=== PATIENT | female | born 2000 | race Caucasian/White ===

== ENCOUNTER 2022-05-17 01:04 | Observation (INO) ==
[2022-05-17 01:29] LABS: Basophils # (auto) 0.01 K/uL (0-0.2); Basophils % (auto) 0.1 %; Eosinophils # (auto) 0.13 K/uL (0-0.50); Eosinophils % (auto) 1.7 %; Hematocrit (blood only) 39.3 % (34.1-44.9); Immature Granulocytes # (auto) 0.02 K/uL (0.00-0.02); Immature Granulocytes % (auto) 0.3 %; Lymphocytes # (auto) 1.95 K/uL (1.2-3.4); Lymphocytes % (auto) 25.8 %; Mean Corpuscular Hemoglobin 30.4 pg (25.0-34.0); Mean Corpuscular Hgb Conc 33.1 g/dL (32.0-36.0); Mean Platelet Volume 9.8 fL (9.4-12.3); Monocytes # (auto) 0.51 K/uL (0.24-0.82); Monocytes % (auto) 6.7 %; Neutrophils # (auto) 4.94 K/uL (1.4-6.5); Neutrophils % (auto) 65.4 %; Platelet Count 300 K/uL (130-400); RDW Coefficient of Variation 12.6 % (11.5-14.5); RDW Standard Deviation 42.4 fL (36.4-46.3); Red Blood Count 4.27 M/uL (3.93-5.22); White Blood Count 7.56 K/ul (4.8-10.8)
[2022-05-17 01:56] LABS: Albumin Globulin Ratio 2.2 (0.9-2); Albumin Level 4.8 gm/dl (3.4-5.0); BUN Creatinine Ratio 8.9 (10-20); Bilirubin,Total 0.3 mg/dl (0.2-1.0); Calcium 9.9 mg/dl (8.5-10.1); Creatinine Clr Calc Pharmacy 98.7 ml/min; Est GFR (African American) 107.4 ml/min; Est GFR (Non-African American) 92.7 ml/min; Globulin 2.2 gm/dl (2.5-4.0); Potassium 3.6 mmol/L (3.5-5.1)
[2022-05-17 01:58] LABS: Acetaminophen < 3 ug/ml (10-30); Salicylate < 3.0 mg/dl (3.0-30)
[2022-05-17 02:09] LABS: Thyroid Stimulating Hormone 13.659 uIu/ml (0.300-4.500)
[2022-05-17 02:47] LABS: T4 Free Thyroxine 1.04 ng/dl (0.61-1.60)
--- NOTE | 2022-05-17 05:58 | History & Physical Report ---
Date of Service May 17, 2022 Assessment & Plan (1) Benzodiazepine (tranquilizer) overdose: Plan: patient is sedated and unable to communicate, severely limiting HPI and ROS reportedly took around 25 xanax pills Admit to medical telemetry consult Psychiatry. Hold all meds: alprazolam, aripiprazole, cariprazine, lamotrigine, and trazodone until assessed by Psychiatry NPO NSS + KCL 20 MEQ @ 150 mls/hr (2) Antidepressant overdose: Plan: also reportedly took and unknown numberr of duloxetine pills (3) Hypothyroidism (acquired): Plan: TSH 13.659 on admission labs add a free T4 and free T3 level no known history of hypothyroidism (4) Tobacco use disorder: Plan: Previously seen in the ED on 10/16/21 fo chest pain, and noted to be a regular tobacco user, e-cigarettes and vaping. History of Present Illness Chief Complaint: The patient is referred for admission due to intentional overdose of 25 xanax pills and and unknown quantity of duloxetine. She is unarousable, and and thus cannot contribute to her HPI or ROS. Primary Care Provider: [facility] see above Allergies Allergy/AdvReac Type Severity Reaction Status Date / Time No Known Allergies Allergy Verified 10/16/21 17:12 Home Medications Medication Instructions Recorded Confirmed Type aripiprazole 10 mg tablet 10 mg PO DAILY 10/16/21 05/17/22 History lamotrigine 100 mg tablet 200 mg PO DAILY 10/16/21 05/17/22 History medroxyprogesterone 150 mg/mL 150 mg IM .[id number] 10/16/21 05/17/22 History intramuscular syringe trazodone 100 mg tablet 100 - 200 mg PO HS PRN Sleep 10/16/21 10/16/21 History alprazolam 0.25 mg tablet 0.25 mg PO TID PRN Anxiety 05/17/22 05/17/22 History cariprazine 1.5 mg capsule 1.5 mg PO DAILY 05/17/22 05/17/22 History (Allyssar) Past Med/Surg History Social History Smoking Status: Current every day smoker Tobacco Type: E-cigarettes / Vaping Feels Safe at Home: Yes Review of Systems Review of Systems: Unobtainable due to reduced consciousness Results & Data Results & Data ([facility]) Vital Signs (Past 12 Hours) Vital Signs Pulse Pulse Resp BP BP Pulse Ox O2 Del Method 05/17/22 04:45 80 14 102/67 100 Room Air 05/17/22 04:30 81 13 108/60 99 Room Air 05/17/22 04:15 78 13 106/54 L 100 Room Air 05/17/22 04:00 80 19 114/63 96 Room Air 05/17/22 03:46 74 16 121/83 96 Room Air 05/17/22 03:30 71 14 107/60 98 Room Air 05/17/22 03:15 74 15 112/79 99 Room Air 05/17/22 03:00 63 13 111/78 100 Room Air 05/17/22 02:45 65 14 118/73 100 Room Air 05/17/22 02:30 65 15 111/68 100 Room Air 05/17/22 02:15 65 14 108/75 100 Room Air 05/17/22 02:10 68 14 98 05/17/22 02:00 72 14 05/17/22 02:00 108/68 05/17/22 01:50 74 16 97 05/17/22 01:45 73 17 99 05/17/22 01:45 121/74 05/17/22 01:40 72 16 98 05/17/22 01:30 71 16 05/17/22 01:30 100/75 05/17/22 01:20 73 16 98 05/17/22 01:15 109/90 05/17/22 01:15 73 16 05/17/22 01:13 67 22 05/17/22 01:13 111/81 05/17/22 00:59 66 15 100/75 100 Room Air 05/17/22 01:14 98 H 16 109/90 98 Room Air 05/17/22 01:14 98 Room Air Laboratory Results Laboratory Results WBC 7.56 K/ul (4.8-10.8) 05/17/22 01:12 RBC 4.27 M/uL (3.93-5.22) 05/17/22 01:12 Hgb 13.0 g/dl (12.0-16.0) 05/17/22 01:12 Hct 39.3 % (34.1-44.9) 05/17/22 01:12 MCV 92.0 fL (80.0-100.0) 05/17/22 01:12 MCH 30.4 pg (25.0-34.0) 05/17/22 01:12 MCHC 33.1 g/dL (32.0-36.0) 05/17/22 01:12 RDW Std Deviation 42.4 fL (36.4-46.3) 05/17/22 01:12 RDW Coeff of Love 12.6 % (11.5-14.5) 05/17/22 01:12 Plt Count 300 K/uL (130-400) 05/17/22 01:12 MPV 9.8 fL (9.4-12.3) 05/17/22 01:12 Immature Gran % (Auto) 0.3 % 05/17/22 01:12 Neut % (Auto) 65.4 % 05/17/22 01:12 Lymph % (Auto) 25.8 % 05/17/22 01:12 Starke % (Auto) 6.7 % 05/17/22 01:12 Eos % (Auto) 1.7 % 05/17/22 01:12 Baso % (Auto) 0.1 % 05/17/22 01:12 Neut # (Auto) 4.94 K/uL (1.4-6.5) 05/17/22 01:12 Lymph # (Auto) 1.95 K/uL (1.2-3.4) 05/17/22 01:12 Starke # (Auto) 0.51 K/uL (0.24-0.82) 05/17/22 01:12 Eos # (Auto) 0.13 K/uL (0-0.50) 05/17/22 01:12 Baso # (Auto) 0.01 K/uL (0-0.2) 05/17/22 01:12 Immature Gran # (Auto) 0.02 K/uL (0.00-0.02) 05/17/22 01:12 Sodium 138 mmol/L (136-145) 05/17/22 01:12 Potassium 3.6 mmol/L (3.5-5.1) 05/17/22 01:12 Chloride 105 mmol/L (98-107) 05/17/22 01:12 Carbon Dioxide 26 mmol/L (21-32) 05/17/22 01:12 Anion Gap 7 (3-11) 05/17/22 01:12 BUN 8 mg/dl (6-23) 05/17/22 01:12 Creatinine 0.90 mg/dl (0.6-1.2) 05/17/22 01:12 Est Cr Clr Drug Dosing 98.7 ml/min 05/17/22 01:12 Est GFR ( Amer) 107.4 ml/min 05/17/22 01:12 Est GFR (Non-Af Amer) 92.7 ml/min 05/17/22 01:12 BUN/Creatinine Ratio 8.9 (10-20) L 05/17/22 01:12 Glucose 93 mg/dl (70-99(Fasting)) 05/17/22 01:12 Calcium 9.9 mg/dl (8.5-10.1) 05/17/22 01:12 Total Bilirubin 0.3 mg/dl (0.2-1.0) 05/17/22 01:12 AST 18 U/L (13-39) 05/17/22 01:12 ALT 14 U/L (7-52) 05/17/22 01:12 Alkaline Phosphatase 68 U/L (34-104) 05/17/22 01:12 Total Protein 7.0 gm/dl (6.0-8.3) 05/17/22 01:12 Albumin 4.8 gm/dl (3.4-5.0) 05/17/22 01:12 Globulin 2.2 gm/dl (2.5-4.0) L 05/17/22 01:12 Albumin/Globulin Ratio 2.2 (0.9-2) H 05/17/22 01:12 TSH 13.659 uIu/ml (0.300-4.500) H 05/17/22 01:12 Free T4 1.04 ng/dl (0.61-1.60) 05/17/22 01:12 Salicylates < 3.0 mg/dl (3.0-30) L 05/17/22 01:12 Acetaminophen < 3 ug/ml (10-30) L 05/17/22 01:12 Ethyl Alcohol mg/dL < 10.0 mg/dl (<10.0) 05/17/22 01:12 SARS-CoV-2, RNA, NAAT NEGATIVE (NEGATIVE) 05/17/22 01:24 Code Status & VTE Plan Code Status full code VTE Prophylaxis Plan VTE Prophylaxis will be ordered: Yes PG Care Time/CCT Total # of Minutes Spent Total Time Spent with Patient: Total time spent is greater than 50% in coordination of care (as documented) at patient's floor/unit and/or counseling patient: Coding Level of Care Code INT OBSERVATION CARE 70M LVL 3 Diagnoses Benzodiazepine (tranquilizer) overdose T42.4X1A Antidepressant overdose T43.201A Hypothyroidism (acquired) E03.9 Tobacco use disorder F17.200
[2022-05-17] MEDS ORDERED: ONDANSETRON INJ 2 MG/ML 2 ML VIAL IV PRN (06:08)
[2022-05-17] MEDS: NSS + 20MEQ KCL 20 MEQ/1,000 ML BAG IV SCH ×3 (06:40→20:14)
[2022-05-17] MEDS: SODIUM CHLORIDE 0.9% 1000ML 1,000 ML IV SCH ×2 (06:42→06:51)
--- NOTE | 2022-05-17 08:29 | Emergency Department Note ---
Impression & Plan [facility] NAME: LISE WHITTAKER AGE: 21 SEX: F ARRIVES VIA: Ambulance INFORMANT: Police ED PROVIDER(S): Cesilia Munoz DO CHIEF COMPLAINT: Intentional overdose PLAN: Disposition: Admit to the [facility] Condition: Guarded MEDICAL DECISION MAKING: This is a 21-year-old female patient who took an intentional overdose of Xanax and Cymbalta. The patient was brought to the emergency department by EMS and remained in an unresponsive state while here in the emergency department. Her vital signs remained stable. Police petitioned a 302. However, the patient will require medical admission as she could not be medically cleared because of her mental status secondary to the benzodiazepine overdose. Poison control contacted and they suggested supportive care. Triage Nursing notes reviewed and agree with them Additional history obtained from the police who responded to her home Vital Signs: reviewed and unremarkable Differential diagnosis: Drug overdose, intentional overdose, suicide attempt, mood disorder, thought disorder ER treatment provided: IV normal saline Diagnostics interpreted by me: ECG: Normal sinus rhythm at a rate of [address] segment elevation or signs of ischemia. There is no ectopy. Cardiac Monitoring: Normal sinus rhythm at 70 Laboratory studies: See below Consultation(s): Poison Control Center HPI: / arrives for evaluation of overdose. The police explained that they received a phone call from boyfriend who was concerned that the patient took an overdose of Xanax and Cymbalta and attempt to hurt her self. He arrived on scene and found the patient semiresponsive. When police arrived on scene, they found the patient unresponsive. ROS: Unobtainable from patient as she is unresponsive PAST MEDICAL HISTORY:Depression PAST SURGICAL HISTORY:Unobtainable from patient as she is unresponsive FAMILY HISTORY:Unobtainable from patient as she is unresponsive SOCIAL HISTORY:Unobtainable from patient as she is unresponsive HOME MEDICATIONS:See list ALLERGIES:None VITALS:See Below PHYSICAL EXAMINATION: HEENT: Head - normocephalic and atraumatic Pupils are equal, round, and reactive to light. Extraocular eye muscles are intact, and sclera are anicteric. Nose - moist nasal mucosa without discharge. Mouth - moist buccal mucosa. Oropharynx is nonerythematous and there is no tonsillar exudate or edema noted. Neck: Supple; no JVD, nuchal rigidity, cervical lymphadenopathy, or thyromegaly. Heart: Regular rate and rhythm. There is a normal S1 and S2 with no murmurs, clicks, or gallops appreciated. Lungs: Clear to auscultation bilaterally with no wheezes, rales, or rhonchi. Abdomen: Soft, completely nontender, nondistended, with good bowel sounds. There are no palpable pulsatile masses or hepatosplenomegaly. There is no guarding, rigidity, or rebound noted. Extremities: No evidence of cyanosis, clubbing, or edema. There are easily palpable peripheral pulses. Skin: warm and dry with good turgor and no rashes. ED COURSE: Times/Reassessments: 130: The patient was evaluated in room A8. A complete history and physical was performed. An IV lock was initiated and labs were dr jb as above. An order was placed for continuous cardiac monitoring. The patient was in a normal sinus rhythm at a rate of 70. The patient was started on IV normal saline. Poison control was contacted. A twelve-lead EKG was obtained. This is described above. The patient remained unresponsive with stable vital signs. She was monitored closely. Patient will be admitted medically Cesilia Munoz DO Past Med/Surg History Social History Smoking Status: Never smoker Tobacco Type: E-cigarettes / Vaping Hx Substance Use: Yes Last Used Substance: Just Prior to Arrival Preferred Language: Finnish Communication Ability: Effective Junior Business Analyst Required: No Beliefs That Will Affect Care: None Current Living Situation: Parent Feels Safe at Home: Yes Assistive Devices: None Allergies Allergies Allergy/AdvReac Type Severity Reaction Status Date / Time No Known Allergies Allergy Verified 10/16/21 17:12 Home Meds Home Medications Medication Instructions Recorded Confirmed aripiprazole 10 mg tablet 10 mg PO DAILY 10/16/21 05/17/22 lamotrigine 100 mg tablet 200 mg PO DAILY 10/16/21 05/17/22 medroxyprogesterone 150 mg/mL 150 mg IM .[id number] 10/16/21 05/17/22 intramuscular syringe trazodone 100 mg tablet 100 - 200 mg PO HS PRN Sleep 10/16/21 10/16/21 alprazolam 0.25 mg tablet 0.25 mg PO TID PRN Anxiety 05/17/22 05/17/22 cariprazine 1.5 mg capsule 1.5 mg PO DAILY 05/17/22 05/17/22 (Angie) Results & Data (ED) Vital Signs Vital Signs - 24 hr 05/17/22 01:14 05/17/22 01:14 05/17/22 00:59 Pulse Rate 66 Pulse Rate [Left Brachial] 98 H Pulse Rate from SpO2 Sensor Respiratory Rate 16 15 Respiratory Effort / Characteristics Non-Labored Spontaneous Non-Labored Spontaneous Respiratory Depth Normal Normal Respiratory Pattern Regular Regular Blood Pressure 100/75 Blood Pressure [Left Arm] 109/90 Blood Pressure Mean 83 Blood Pressure Mean [Left Arm] 96 Blood Pressure Position Lying Pulse Oximetry 98 98 100 Oxygen Delivery Method Room Air Room Air Room Air Sepsis New/Unexplained Change in Mental Status No Sepsis Action Taken by Nursing No Action Required 05/17/22 01:14 05/17/22 01:13 05/17/22 01:13 Pulse Rate 67 Pulse Rate [Left Brachial] Pulse Rate from SpO2 Sensor Respiratory Rate 22 Respiratory Effort / Characteristics Non-Labored Spontaneous Respiratory Depth Normal Respiratory Pattern Blood Pressure 111/81 Blood Pressure [Left Arm] Blood Pressure Mean 91 Blood Pressure Mean [Left Arm] Blood Pressure Position Pulse Oximetry Oxygen Delivery Method Sepsis New/Unexplained Change in Mental Status Sepsis Action Taken by Nursing 05/17/22 01:15 05/17/22 01:15 05/17/22 01:20 Pulse Rate 73 73 Pulse Rate [Left Brachial] Pulse Rate from SpO2 Sensor 74 Respiratory Rate 16 16 Respiratory Effort / Characteristics Respiratory Depth Respiratory Pattern Blood Pressure 109/90 Blood Pressure [Left Arm] Blood Pressure Mean 96 Blood Pressure Mean [Left Arm] Blood Pressure Position Pulse Oximetry 98 Oxygen Delivery Method Sepsis New/Unexplained Change in Mental Status Sepsis Action Taken by Nursing 05/17/22 01:30 05/17/22 01:30 05/17/22 01:40 Pulse Rate 71 72 Pulse Rate [Left Brachial] Pulse Rate from SpO2 Sensor 72 Respiratory Rate 16 16 Respiratory Effort / Characteristics Respiratory Depth Respiratory Pattern Blood Pressure 100/75 Blood Pressure [Left Arm] Blood Pressure Mean 83 Blood Pressure Mean [Left Arm] Blood Pressure Position Pulse Oximetry 98 Oxygen Delivery Method Sepsis New/Unexplained Change in Mental Status Sepsis Action Taken by Nursing 05/17/22 01:45 05/17/22 01:45 05/17/22 01:50 Pulse Rate 73 74 Pulse Rate [Left Brachial] Pulse Rate from SpO2 Sensor 74 74 Respiratory Rate 17 16 Respiratory Effort / Characteristics Respiratory Depth Respiratory Pattern Blood Pressure 121/74 Blood Pressure [Left Arm] Blood Pressure Mean 89 Blood Pressure Mean [Left Arm] Blood Pressure Position Pulse Oximetry 99 97 Oxygen Delivery Method Sepsis New/Unexplained Change in Mental Status Sepsis Action Taken by Nursing 05/17/22 02:00 05/17/22 02:00 05/17/22 02:10 Pulse Rate 72 68 Pulse Rate [Left Brachial] Pulse Rate from SpO2 Sensor 68 Respiratory Rate 14 14 Respiratory Effort / Characteristics Respiratory Depth Respiratory Pattern Blood Pressure 108/68 Blood Pressure [Left Arm] Blood Pressure Mean 81 Blood Pressure Mean [Left Arm] Blood Pressure Position Pulse Oximetry 98 Oxygen Delivery Method Sepsis New/Unexplained Change in Mental Status Sepsis Action Taken by Nursing 05/17/22 02:15 05/17/22 02:30 05/17/22 02:45 Pulse Rate 65 65 65 Pulse Rate [Left Brachial] Pulse Rate from SpO2 Sensor Respiratory Rate 14 15 14 Respiratory Effort / Characteristics Respiratory Depth Respiratory Pattern Blood Pressure 108/75 111/68 118/73 Blood Pressure [Left Arm] Blood Pressure Mean 86 82 88 Blood Pressure Mean [Left Arm] Blood Pressure Position Pulse Oximetry 100 100 100 Oxygen Delivery Method Room Air Room Air Room Air Sepsis New/Unexplained Change in Mental Status Sepsis Action Taken by Nursing 05/17/22 03:00 05/17/22 03:15 05/17/22 03:30 Pulse Rate 63 74 71 Pulse Rate [Left Brachial] Pulse Rate from SpO2 Sensor Respiratory Rate 13 15 14 Respiratory Effort / Characteristics Respiratory Depth Respiratory Pattern Blood Pressure 111/78 112/79 107/60 Blood Pressure [Left Arm] Blood Pressure Mean 89 90 75 Blood Pressure Mean [Left Arm] Blood Pressure Position Pulse Oximetry 100 99 98 Oxygen Delivery Method Room Air Room Air Room Air Sepsis New/Unexplained Change in Mental Status Sepsis Action Taken by Nursing 05/17/22 03:46 05/17/22 04:00 05/17/22 04:15 Pulse Rate 74 80 78 Pulse Rate [Left Brachial] Pulse Rate from SpO2 Sensor Respiratory Rate 16 19 13 Respiratory Effort / Characteristics Respiratory Depth Respiratory Pattern Blood Pressure 121/83 114/63 106/54 L Blood Pressure [Left Arm] Blood Pressure Mean 95 80 71 Blood Pressure Mean [Left Arm] Blood Pressure Position Pulse Oximetry 96 96 100 Oxygen Delivery Method Room Air Room Air Room Air Sepsis New/Unexplained Change in Mental Status Sepsis Action Taken by Nursing 05/17/22 04:30 05/17/22 04:45 05/17/22 05:00 Pulse Rate 81 80 80 Pulse Rate [Left Brachial] Pulse Rate from SpO2 Sensor Respiratory Rate 13 14 13 Respiratory Effort / Characteristics Respiratory Depth Respiratory Pattern Blood Pressure 108/60 102/67 100/60 Blood Pressure [Left Arm] Blood Pressure Mean 76 78 73 Blood Pressure Mean [Left Arm] Blood Pressure Position Pulse Oximetry 99 100 100 Oxygen Delivery Method Room Air Room Air Room Air Sepsis New/Unexplained Change in Mental Status Sepsis Action Taken by Nursing 05/17/22 05:15 05/17/22 05:30 Pulse Rate 83 79 Pulse Rate [Left Brachial] Pulse Rate from SpO2 Sensor Respiratory Rate 13 16 Respiratory Effort / Characteristics Respiratory Depth Respiratory Pattern Blood Pressure 116/65 102/78 Blood Pressure [Left Arm] Blood Pressure Mean 82 86 Blood Pressure Mean [Left Arm] Blood Pressure Position Pulse Oximetry 99 100 Oxygen Delivery Method Room Air Room Air Sepsis New/Unexplained Change in Mental Status Sepsis Action Taken by Nursing Laboratory Data Result diagrams: 05/17/22 01:12 05/17/22 01:12 Lab Results 05/17/22 05/17/22 05/17/22 Range/Units 01:12 01:12 01:12 WBC 7.56 (4.8-10.8) K/ul RBC 4.27 (3.93-5.22) M/uL Hgb 13.0 (12.0-16.0) g/dl Hct 39.3 (34.1-44.9) % MCV 92.0 (80.0-100.0) fL MCH 30.4 (25.0-34.0) pg MCHC 33.1 (32.0-36.0) g/dL RDW Std Deviation 42.4 (36.4-46.3) fL RDW Coeff of Love 12.6 (11.5-14.5) % Plt Count 300 (130-400) K/uL MPV 9.8 (9.4-12.3) fL Immature Gran % (Auto) 0.3 % Neut % (Auto) 65.4 % Lymph % (Auto) 25.8 % Berg[place] % (Auto) 6.7 % Eos % (Auto) 1.7 % Baso % (Auto) 0.1 % Neut # (Auto) 4.94 (1.4-6.5) K/uL Lymph # (Auto) 1.95 (1.2-3.4) K/uL [place] # (Auto) 0.51 (0.24-0.82) K/uL Eos # (Auto) 0.13 (0-0.50) K/uL Baso # (Auto) 0.01 (0-0.2) K/uL Immature Gran # (Auto) 0.02 (0.00-0.02) K/uL Sodium 138 (136-145) mmol/L Potassium 3.6 (3.5-5.1) mmol/L Chloride 105 (98-107) mmol/L Carbon Dioxide 26 (21-32) mmol/L Anion Gap 7 (3-11) BUN 8 (6-23) mg/dl Creatinine 0.90 (0.6-1.2) mg/dl Est Cr Clr Drug Dosing 98.7 ml/min Est GFR ( Amer) 107.4 ml/min Est GFR (Non-Af Amer) 92.7 ml/min BUN/Creatinine Ratio 8.9 L (10-20) Glucose 93 (70-99(Fasting)) mg/dl Calcium 9.9 (8.5-10.1) mg/dl Total Bilirubin 0.3 (0.2-1.0) mg/dl AST 18 (13-39) U/L ALT 14 (7-52) U/L Alkaline Phosphatase 68 (34-104) U/L Total Protein 7.0 (6.0-8.3) gm/dl Albumin 4.8 (3.4-5.0) gm/dl Globulin 2.2 L (2.5-4.0) gm/dl Albumin/Globulin Ratio 2.2 H (0.9-2) TSH 13.659 H (0.300-4.500) uIu/ml Free T4 1.04 (0.61-1.60) ng/dl Free T3 (2.3-4.2) pg/ml Salicylates (3.0-30) mg/dl Acetaminophen (10-30) ug/ml Ethyl Alcohol mg/dL (<10.0) mg/dl SARS-CoV-2, RNA, NAAT (NEGATIVE) 05/17/22 05/17/22 05/17/22 Range/Units 01:12 01:12 01:12 WBC (4.8-10.8) K/ul RBC (3.93-5.22) M/uL Hgb (12.0-16.0) g/dl Hct (34.1-44.9) % MCV (80.0-100.0) fL MCH (25.0-34.0) pg MCHC (32.0-36.0) g/dL RDW Std Deviation (36.4-46.3) fL RDW Coeff of Love (11.5-14.5) % Plt Count (130-400) K/uL MPV (9.4-12.3) fL Immature Gran % (Auto) % Neut % (Auto) % Lymph % (Auto) % Berg[place] % (Auto) % Eos % (Auto) % Baso % (Auto) % Neut # (Auto) (1.4-6.5) K/uL Lymph # (Auto) (1.2-3.4) K/uL Bergen # (Auto) (0.24-0.82) K/uL Eos # (Auto) (0-0.50) K/uL Baso # (Auto) (0-0.2) K/uL Immature Gran # (Auto) (0.00-0.02) K/uL Sodium (136-145) mmol/L Potassium (3.5-5.1) mmol/L Chloride (98-107) mmol/L Carbon Dioxide (21-32) mmol/L Anion Gap (3-11) BUN (6-23) mg/dl Creatinine (0.6-1.2) mg/dl Est Cr Clr Drug Dosing ml/min Est GFR ( Amer) ml/min Est GFR (Non-Af Amer) ml/min BUN/Creatinine Ratio (10-20) Glucose (70-99(Fasting)) mg/dl Calcium (8.5-10.1) mg/dl Total Bilirubin (0.2-1.0) mg/dl AST (13-39) U/L ALT (7-52) U/L Alkaline Phosphatase (34-104) U/L Total Protein (6.0-8.3) gm/dl Albumin (3.4-5.0) gm/dl Globulin (2.5-4.0) gm/dl Albumin/Globulin Ratio (0.9-2) TSH (0.300-4.500) uIu/ml Free T4 (0.61-1.60) ng/dl Free T3 3.86 (2.3-4.2) pg/ml Salicylates < 3.0 L (3.0-30) mg/dl Acetaminophen < 3 L (10-30) ug/ml Ethyl Alcohol mg/dL < 10.0 (<10.0) mg/dl SARS-CoV-2, RNA, NAAT (NEGATIVE) 05/17/22 Range/Units 01:24 WBC (4.8-10.8) K/ul RBC (3.93-5.22) M/uL Hgb (12.0-16.0) g/dl Hct (34.1-44.9) % MCV (80.0-100.0) fL MCH (25.0-34.0) pg MCHC (32.0-36.0) g/dL RDW Std Deviation (36.4-46.3) fL RDW Coeff of Love (11.5-14.5) % Plt Count (130-400) K/uL MPV (9.4-12.3) fL Immature Gran % (Auto) % Neut % (Auto) % Lymph % (Auto) % [place] % (Auto) % Eos % (Auto) % Baso % (Auto) % Neut # (Auto) (1.4-6.5) K/uL Lymph # (Auto) (1.2-3.4) K/uL Berg[place] # (Auto) (0.24-0.82) K/uL Eos # (Auto) (0-0.50) K/uL Baso # (Auto) (0-0.2) K/uL Immature Gran # (Auto) (0.00-0.02) K/uL Sodium (136-145) mmol/L Potassium (3.5-5.1) mmol/L Chloride (98-107) mmol/L Carbon Dioxide (21-32) mmol/L Anion Gap (3-11) BUN (6-23) mg/dl Creatinine (0.6-1.2) mg/dl Est Cr Clr Drug Dosing ml/min Est GFR ( Amer) ml/min Est GFR (Non-Af Amer) ml/min BUN/Creatinine Ratio (10-20) Glucose (70-99(Fasting)) mg/dl Calcium (8.5-10.1) mg/dl Total Bilirubin (0.2-1.0) mg/dl AST (13-39) U/L ALT (7-52) U/L Alkaline Phosphatase (34-104) U/L Total Protein (6.0-8.3) gm/dl Albumin (3.4-5.0) gm/dl Globulin (2.5-4.0) gm/dl Albumin/Globulin Ratio (0.9-2) TSH (0.300-4.500) uIu/ml Free T4 (0.61-1.60) ng/dl Free T3 (2.3-4.2) pg/ml Salicylates (3.0-30) mg/dl Acetaminophen (10-30) ug/ml Ethyl Alcohol mg/dL (<10.0) mg/dl SARS-CoV-2, RNA, NAAT NEGATIVE (NEGATIVE) Administered Medications Potassium Chloride/Sodium Chloride (Normal Saline W/20 Meq Kcl) 20 meq in 1,000 mls @ 150 mls/hr IV .[id number] KIMI Stop: 06/16/22 06:29 Last Admin: 05/17/22 13:19 Dose: 150 mls/hr Documented By: Infusion: 05/17/22 13:19 Dose: 150 mls/hr Documented By: Admin: 05/17/22 06:40 Dose: 150 mls/hr Documented By: TIM Discontinued Medications Sodium Chloride (Nss 1000ml) 1,000 mls @ 125 mls/hr IV .Q8H KIMI Stop: 06/16/22 04:44 Last Admin: 05/17/22 06:51 Dose: Not Given Documented By: TIM Discharge Plan Visit Data Chief Complaint: Mental Health Evaluation Stated Complaint: Overdose ED Provider: Cesilia Munoz Discharge Problem: Intentional benzodiazepine overdose Patient Disposition: Admitted As Inpatient Discharge Instructions Interventions: ED Discharge Assessment Last Done: 05/17/22 06:09 : Intentional benzodiazepine overdose Qualifiers: Encounter type: initial encounter Qualified Code(s): T42.4X2A - Poisoning by benzodiazepines, intentional self-harm, initial encounter
--- NOTE | 2022-05-17 14:24 | History & Physical Bridge Note ---
Date of Service May 17, 2022 History & Physical Bridge Note I have examined the patient, reviewed the History & Physical and in the interval since the performance of the History & Physical I have noted the following changes of clinical significance: no changes noted 21 yo WF with a prior h/o suicidal ideations/attempts/self-inflicted wounds who presented after a reported OD on Xanax and Cymbalta. Per mother she has been following with a psychiatrist in [place], [place] but doing telehealth visits. Mother admits that she has been experiencing depressed mood and "dark thoughts" over the past 2 weeks but worse over the past 4 days. Had an emergency telehealth visit with her psychiatrist on Friday. She was supposed to travel home this weekend and remain there for at least a week in order to get herself back on track. Patient is extremely somnolent but responds to sternal rub and opens eyes. Pupils dilated but reactive. Continues to protect her airway. Noted to have several lacerations to her upper right thigh. Heart is regular, lungs clear, belly soft w/ NA BS throughout. UDS, UA, and UCG not yet collected, will have nursing cath for urine to run these. Continue NPO status and IVF. Supportive care. 1:1 and suicide precautions. Psychiatry consulted, appreciate assistance. Agree with remainder of plan as outlined by admitting physician. Please see full history and physical for further details. Dr. Euceda updated on plan.
--- NOTE | 2022-05-17 14:29 | Communication Note ---
Date of Service: May 17, 2022 consult received, chart reviewed, case discussed with liaison nurse who spoke with mother at bedside as patient remains quite sedated/unable to provide hx following OD. Ingestion of Xanax and ?Cymbalta. Patient is from [facility] and had seen her home psychiatrist Dr. Bosch for an emergency session this week. She had planned to come home for a week starting this weekend but things apparently escalated. psych meds are being held. Boyfriend activated EMS having found her passed out. There is a 302 warrant on the chart. Patient should be 1-on-1 for safety according to hospital protocol, she is unable to leave the hospital AMA, inpatient psychiatric hospitalization will be recommended, particularly given her hx of previous OD in early teens. Full consult to follow within approximately 24 hrs when patient more alert or closer to medical clearance. Dr. Zuleta to assume primarily clinical responsibility for consult service at 1700 hrs.
--- NOTE | 2022-05-17 15:48 | Electrocardiogram Report ---
Test Reason : Blood Pressure : / mmHG Vent. Rate : 066 BPM Atrial Rate : 066 BPM P-R Int : 150 ms QRS Dur : 096 ms QT Int : 390 ms P-R-T Axes : 079 077 064 degrees QTc Int : 408 ms Normal sinus rhythm Normal ECG When compared with ECG of 16-OCT-2021 15:33, No significant change was found Confirmed by Richard Kebede ([id number]) on 05/17/2022 3:48:19 PM Referred By: REFERRED SELF Confirmed By:Richard Kebede
[2022-05-17 16:25] LABS: Appearance Urine Clear (Clear); Bilirubin Urine Negative (Negative); Blood Urine Negative (Negative); Color Urine Yellow; Glucose Urine UA Negative (Negative); Ketones Urine Negative (Negative); Leukocyte Esterase Urine Negative (Negative); Nitrite Urine Negative (Negative); Protein Urine Negative (Negative); Specific Gravity Urine 1.009 (1.000-1.030); Urobilinogen Urine Negative (Negative); pH Urine 5.5 (4.5-7.5)
[2022-05-17 16:39] LABS: Pregnancy Test, Urine Negative (Negative)
[2022-05-17 17:10] LABS: Amphetamines+Metham, Urine Neg (Neg); Barbiturates, Urine Neg (Neg); Benzodiazepine, Urine Pos (Neg); Cocaine, Urine Neg (Neg); MDMA (Ecstacy), Urine Neg (Neg); Methadone, Urine Neg (Neg); Opiate, Urine Neg (Neg); Phencyclidine, Urine Neg (Neg)
[2022-05-18] MEDS: NSS + 20MEQ KCL 20 MEQ/1,000 ML BAG IV SCH ×2 (02:44→09:16)
--- NOTE | 2022-05-18 12:36 | Psychiatric Consultation ---
Date of Consultation May 18, 2022 Impression / Recommendations Impression This is a 21 yo [employer] student admitted medically following an intentional overdose suicide attempt. Diagnostically consistent with MDD. Acute risk of self-harm remains elevated and high given suicide attempt requiring medical admission, major depressive symptoms, history of prior attempts, hopelessness, ongoing depression. Given elevated risk of harm to self they meet criteria for inpatient psychiatric care for diagnostic clarification, safety/stabilization, development of additional coping skills, medication management and disposition/safety planning. She is agreeable to voluntary treatment but will meet criteria for 302 status based on severity of suicide attempt and ongoing modifiable risk factors if she changes her mind. (1) Intentional benzodiazepine overdose: Encounter type: initial encounter Qualified Code(s): T42.4X2A - Poisoning by benzodiazepines, intentional self-harm, initial encounter (2) Antidepressant overdose: (3) Suicide attempt: (4) Major depression, recurrent: Plan -Continue 1-on-1 for risk of harm to self -Do not discharge or allow to leave AMA -Voluntary for inpt psych tx, psych liason has started bed search -Hold psych medications for now pending inpt psych admission Risk Factors Assessment Do You Have Access To A Gun?: No Psych History Identifying Data 21 yo [employer] student admitted medically s/p suicide attempt via overdose. Psychiatry consulted for risk assessment and recommendations. Chief Complaint "I had been thinking about it for a few days". History of Present Illness Licha was seen with her mother at bedside. She was admitted following suicide attempt via overdose of ~25 xanax, Cymbalta and lamictal. She notes a history of depression with worsening over the last one month with no clear precipitants or specific stressors. She is ambivalent about surviving the attempt noting that she never expected to survive but also feels loved after getting lots of messages from her friends. She notes recent changes in her medications with her psychiatrist from [place] recently making multiple changes including recent addition of Vraylar. She had been thinking about SI for the few days prior to the attempt. She is voluntary for inpatient psych treatment. Past Psychiatric History Previous Psych History: depression Outpatient Services: psychiatrist in [facility] Previous Psych Admissions: ~1 wk at inpt unit in [facility] as a teen Do You Have Access To A Gun?: No History of Previous Suicide Attempt: Yes Describe Attempts in the Past: overdose as a teen resulting in 1 week inpt admission Past Medication Trials: multiple including abilify, SSRIs, SNRIs, vraylar Allergies Allergy/AdvReac Type Severity Reaction Status Date / Time No Known Allergies Allergy Verified 10/16/21 17:12 Home Medications Medication Instructions Recorded Confirmed Type aripiprazole 10 mg tablet 10 mg PO DAILY 10/16/21 10/16/21 History lamotrigine 100 mg tablet 200 mg PO DAILY 10/16/21 05/18/22 History medroxyprogesterone 150 mg/mL 150 mg IM .[id number] 10/16/21 05/17/22 History intramuscular syringe trazodone 100 mg tablet 100 - 200 mg PO HS PRN Sleep 10/16/21 10/16/21 History alprazolam 0.25 mg tablet 0.25 mg PO TID PRN Anxiety 05/17/22 05/17/22 History cariprazine 1.5 mg capsule 1.5 mg PO DAILY 05/17/22 History (Vraylar) Vraylar 1.5 mg PO QID 05/18/22 05/18/22 History aripiprazole 5 mg PO QID 05/18/22 05/18/22 History duloxetine 60 mg PO QID 05/18/22 05/18/22 History Family History depression Substance Abuse History denies Personal History Living Arrangements: [facility] Highest Grade Completed: Some College Employment Status: Student Marital Status: Single Beliefs That Will Affect Care: None Patient History Social History Smoking Status: Never smoker Tobacco Type: E-cigarettes / Vaping Hx Substance Use: Yes Last Used Substance: Just Prior to Arrival Preferred Language: Mozambican Communication Ability: Effective Director Digital Required: No Beliefs That Will Affect Care: None Current Living Situation: Parent Feels Safe at Home: Yes Assistive Devices: None Physical Exam Psychiatric: Orientation: alert and oriented x 3 Apperance: appropriately dressed and appropriately groomed Eye Contact: good eye contact Motor Behavior: no abnormal motor movements Speech: normal rate/rhythm/volume of speech Affect: + depressed affect Mood: + depressed mood and + anxious mood Thought Process: goal directed thought process Thought Content: reality based without delusions Suicidal Thoughts: denies suicidal thoughts (but attempt leading to admission), denies suicidal plan and denies suicidal intent Homicidal Thoughts: denies homicidal thoughts Hallucinations: no auditory hallucinations and no visual hallucinations Cognition: recent memory grossly intact, remote memory grossly intact, attention grossly intact and language grossly intact Estimated Intelligence: consistent with education level Insight: + fair insight Judgement: + limited judgement Vital Signs (Past 24 Hours): Last Vital Signs Pulse 89 05/18/22 09:30 Resp 18 05/18/22 09:30 BP 111/65 05/18/22 09:30 Pulse Ox 98 05/18/22 11:17 O2 Del Method 05/18/22 11:17 Review of Systems All systems reviewed & are unremarkable except as noted in HPI & below (some pain from IV site) Results & Data (PSY) Medications Administered Potassium Chloride/Sodium Chloride (Normal Saline W/20 Meq Kcl) 20 meq in 1,000 mls @ 150 mls/hr IV .[id number] KIMI Stop: 06/16/22 06:29 Last Admin: 05/18/22 09:16 Dose: 150 mls/hr Documented By: DRJuliet Infusion: 05/18/22 09:08 Dose: 0 mls/hr Documented By: Admin: 05/18/22 02:44 Dose: 150 mls/hr Documented By: Infusion: 05/18/22 02:44 Dose: 150 mls/hr Documented By: Admin: 05/17/22 20:14 Dose: 150 mls/hr Documented By: Infusion: 05/17/22 20:00 Dose: 150 mls/hr Documented By: Admin: 05/17/22 13:19 Dose: 150 mls/hr Documented By: Infusion: 05/17/22 13:19 Dose: 150 mls/hr Documented By: Admin: 05/17/22 06:40 Dose: 150 mls/hr Documented By: TIM Coding Level of Care Code 79455 Inpt Consult Level 4 Diagnoses Intentional benzodiazepine overdose T42.4X2A Encounter type: initial encounter Antidepressant overdose T43.201A Suicide attempt T14.91XA Major depression, recurrent F33.9 Time Spent (min) 50
--- NOTE | 2022-05-18 14:42 | Hospitalist Progress Note ---
Date of Service May 18, 2022 Assessment & Plan (1) Benzodiazepine (tranquilizer) overdose: Plan: - Pt OD'd on benzos and cymbalta on evening of 05/16 - reportedly took around 25 xanax pills - admitted to tele with consult to psych - OD was intentional- UDS + benzos - Plans to transition to inpatient behavioral health, unfortunately she is out of network for our in-house unit - will assist in finding another facility for her to do inpatient stay (2) Antidepressant overdose: Plan: - also reportedly took and unknown number of duloxetine pills (3) Tobacco use disorder: Plan: Previously seen in the ED on 10/16/21 for chest pain, and noted to be a regular tobacco user, e-cigarettes and vaping. Plan Pt noted to have an elevated TSH of 13 with a normal FT4 and T3. Would hold off on initiating thyroid replacement, obtain f/u TFTs in 6-8 weeks. Regarding psychiatric medications, will continue holding them as per my discussion with psychiatry until she is transferred to an inpatient unit. She is out of network with her insurance for our in-house unit and therefore liaison will assist in finding an in-network facility that she can be transferred to. She is stable from a medical standpoint for discharge and transfer to inpatient psych. Mother has been updated at bedside. Plan d/w Dr. Euceda. Admission and Anticipated Discharge Date Admission Date: May 17, 2022 Subjective Patient seen on daily rounds this morning. She is awake, alert, agreeable to inpatient treatment for her suicidal ideation, MDD and anxiety. Has been str uggling more recently with feeling insecure about her future and self worth. She denies cp, dyspnea, n/v/d, headache. She c/o discomfort at IV site. Review of Systems Review of Systems: All systems reviewed and are unremarkable except as noted in HPI and below. Denies fever, chills, fatigue, headache, nasal congestion, sore throat, cough, chest pain, shortness of breath, palpitations, orthopnea, PND, abdominal pain, n/v/d, constipation, dysuria, hematuria, frequency, back pain, joint pain or swelling, easy bruising or bleeding, skin lesions or rashes. Physical Exam Physical Exam: GENERAL: 21 yo Well-developed, well-nourished WF. NAD. LUNGS: Clear to auscultation bilaterally. No W/R/R. CARDIOVASCULAR: Regular rate and rhythm. ABDOMEN: Soft, non-tender and non-distended. BS normoactive x 4 quad. EXTREMITIES: No edema. Non-tender. Peripheral pulses +2/4. NEUROLOGIC: A&O x3. PSYCHIATRIC: Cooperative. Appropriate mood and affect. SKIN: Warm, dry, intact. No rashes or lesions. Results & Data Results & Data ([facility]) Vital Signs (Past 12 Hours) Vital Signs Pulse Resp BP Pulse Ox Pulse Ox O2 Del Method O2 Del Method 05/18/22 11:17 98 Room Air 05/18/22 09:30 89 18 111/65 05/18/22 07:45 72 18 112/69 98 Room Air 05/18/22 05:53 68 14 111/56 L 97 PG Care Time/CCT Total # of Minutes Spent Total Time Spent with Patient: Total time spent is greater than 50% in coordination of care (as documented) at patient's floor/unit and/or counseling patient: Coding Level of Care Code 15682 Subseq Obs Care Lvl 2 Diagnoses Benzodiazepine (tranquilizer) overdose T42.4X1A Antidepressant overdose T43.201A Tobacco use disorder F17.200
[2022-05-18] MEDS: ACETAMINOPHEN 325 MG TAB PO PRN (21:45)
[2022-05-19] MEDS: ACETAMINOPHEN 325 MG TAB PO PRN ×2 (12:26→18:06)
[2022-05-19] MEDS ORDERED: traZODone HCL 50 MG TAB PO PRN (13:17)
--- NOTE | 2022-05-19 13:17 | Psychiatric Progress Note ---
Date of Service May 19, 2022 Impression / Recommendations Impression This is a 21 yo [employer] student admitted medically following an intentional overdose suicide attempt. Diagnostically consistent with MDD. Acute risk of self-harm remains elevated and high given suicide attempt requiring medical admission, major depressive symptoms, history of prior attempts, hopelessness, ongoing depression. Given elevated risk of harm to self they meet criteria for inpatient psychiatric care for diagnostic clarification, safety/stabilization, development of additional coping skills, medication management and disposition/safety planning. She is agreeable to voluntary treatment but will meet criteria for 302 status based on severity of suicide attempt and ongoing modifiable risk factors if she changes her mind. 05/19/22: remains depressed, will hold off on restarting psych meds for depre ssion until can speak with her outpt psychiatrist/get records from their office tomorrow. Ongoing bed search. Discussed starting medication to help with insomnia. Discussed risks, benefits and alternatives. Patient would like to start and consented to melatonin and trazodone for insomnia/depression. Reviewed side effects including but not limited to: sedation, increased appetite, lightheadedness. She has taken both medications before and tolerated them well. (1) Intentional benzodiazepine overdose: (2) Antidepressant overdose: (3) Suicide attempt: (4) Major depression, recurrent: Plan -Continue 1-on-1 for risk of harm to self -Do not discharge or allow to leave AMA -Voluntary for inpt psych tx, psych liason has started bed search -Hold psych medications for now pending inpt psych admission -Will start trazodone 50mg qhs prn for insomnia and melatonin 9mg qhs -Once placement is found she should be allowed to have her Vraylar returned to her and taken to inpatient psychiatry facility in case they decide to continue this as it is typically non-formulary and unavailable in some inpt settings. For now pharmacy is holding. -Offered therapeutic activities which ED nurses will provide Risk Factors Assessment Do You Have Access To A Gun?: No Interval History Identifying Information 21 yo [employer] student admitted medically s/p suicide attempt via overdose. Psychiatry consulted for risk assessment and recommendations. Chief Complaint "I'm just really tired and ready to get on with the next step of inpatient treatment". Review of Systems Notes see subjective Subjective Subjective Patient was seen & assessed and interval progress reviewed. Ongoing bed search, reviewed no options so far. Feeling "very tired", didn't sleep well. Appetite is normal. Denies SI but still feels ambivalent about being alive. Reviewed plan to continue to hold psych meds pending psych inpt admission which she agrees with. Will start medications tonight to help with insomnia, previously she took xanax to help with falling asleep. Her father was at bedside toward the end of the visit and he was updated as well and answered his questions regarding plans for medication and ongoing work to find placement. Physical Exam Psychiatric Orientation: alert and oriented x 3 Apperance: appropriately dressed and appropriately groomed Eye Contact: good eye contact Motor Behavior: no abnormal motor movements Speech: normal rate/rhythm/volume of speech Affect: + depressed affect Mood: + depressed mood and + anxious mood Thought Process: goal directed thought process Thought Content: reality based without delusions Suicidal Thoughts: denies suicidal thoughts (but attempt leading to admission), denies suicidal plan and denies suicidal intent Homicidal Thoughts: denies homicidal thoughts Hallucinations: no auditory hallucinations and no visual hallucinations Cognition: recent memory grossly intact, remote memory grossly intact, attention grossly intact and language grossly intact Estimated Intelligence: consistent with education level Insight: + fair insight Judgement: + limited judgement Vital Signs (Past 24 Hours) Last Vital Signs Pulse 88 05/19/22 10:08 Resp 20 05/19/22 10:08 BP 95/58 L 05/19/22 10:08 Pulse Ox 97 05/19/22 11:11 O2 Del Method 05/19/22 11:11 Results & Data ([facility]) Current Inpatient Medications Current Inpatient Medications: Current Inpatient Medications Acetaminophen (Acetaminophen 325 Mg Tab) 650 mg PO Q4H PRN PRN Reason: Pain or Fever Stop: 06/16/22 06:07 Last Admin: 05/19/22 12:26 Dose: 650 mg Ondansetron HCl (Ondansetron Inj 2 Mg/Ml 2 Ml Vial) 4 mg IV Q6H PRN PRN Reason: Nausea Stop: 06/16/22 06:07 (1) Intentional benzodiazepine overdose Encounter type: initial encounter Qualified Code(s): T42.4X2A - Poisoning by benzodiazepines, intentional self-harm, initial encounter
--- NOTE | 2022-05-19 14:03 | Hospitalist Progress Note ---
Date of Service May 19, 2022 Assessment & Plan (1) Benzodiazepine (tranquilizer) overdose: Plan: - Pt OD'd on benzos and cymbalta on evening of 05/16 - reportedly took around 25 xanax pills & unknown # of cymbalta pills - admitted to tele with consult to psych - OD was intentional- UDS + for benzos - Plans to transition to inpatient behavioral health, unfortunately she is out of network for our in-house unit - continues to assist in finding another facility for her to do an inpatient stay (2) Antidepressant overdose: Plan: - also reportedly took and unknown number of duloxetine pills (3) Tobacco use disorder: Plan: Previously seen in the ED on 10/16/21 for chest pain, and noted to be a regular tobacco user, e-cigarettes and vaping. Plan Pt noted to have an elevated TSH of 13 with a normal FT4 and T3. Would hold off on initiating thyroid replacement, obtain f/u TFTs in 6-8 weeks. Regarding psychiatric medications, will continue holding them as per my discussion with psychiatry until meds/doses can be confirmed with outpatient established psychiatrist. Dr. Zuleta starting on some Trazodone and Melatonin for her insomnia. She is stable from a medical standpoint for discharge and transfer to inpatient psych. Will dc tele monitor. Plan d/w Dr. Euceda. Admission and Anticipated Discharge Date Admission Date: May 17, 2022 Subjective Patient seen on daily rounds this morning. She has no complaints this AM. She remains agreeable to inpatient treatment for her suicidal ideation, MDD and anxiety but also meets 302 criteria due to the severity of suicide attempt. continues to search for inpatient bed as she is considered out of network for our in-house unit. She is anxious to move forward and start treatment. Review of Systems Review of Systems: All systems reviewed and are unremarkable except as noted in HPI and below. Denies fever, chills, fatigue, headache, nasal congestion, sore throat, cough, chest pain, shortness of breath, palpitations, orthopnea, PND, abdominal pain, n/v/d, constipation, dysuria, hematuria, frequency, back pain, joint pain or swelling, easy bruising or bleeding, skin lesions or rashes. Physical Exam Physical Exam: GENERAL: 21 yo Well-developed, well-nourished WF. NAD. LUNGS: Clear to auscultation bilaterally. No W/R/R. CARDIOVASCULAR: Regular rate and rhythm. ABDOMEN: Soft, non-tender and non-distended. BS normoactive x 4 quad. EXTREMITIES: No edema. Non-tender. Peripheral pulses +2/4. NEUROLOGIC: A&O x3. PSYCHIATRIC: Cooperative. Appropriate mood and affect. SKIN: Warm, dry, intact. No rashes or lesions. Results & Data Results & Data ([facility]) Vital Signs (Past 12 Hours) Vital Signs Pulse Resp BP Pulse Ox Pulse Ox O2 Del Method O2 Del Method 05/19/22 11:11 97 Room Air 05/19/22 10:08 88 20 95/58 L 98 Room Air 05/19/22 06:17 80 13 112/56 L 98 Room Air 05/19/22 02:15 79 20 94/57 L 95 Room Air PG Care Time/CCT Total # of Minutes Spent Total Time Spent with Patient: Total time spent is greater than 50% in coordination of care (as documented) at patient's floor/unit and/or counseling patient: Coding Level of Care Code 52871 Subseq Obs Care Lvl 2 Diagnoses Benzodiazepine (tranquilizer) overdose T42.4X1A Antidepressant overdose T43.201A Tobacco use disorder F17.200
[2022-05-19 17:32] LABS: 7-Aminoclonaz, Confirm NEGATIVE ng/mL (<25); Hydro-Alp Ur, GC/MS 284 ng/mL (<25); Hydroxyethylflurazepam, Conf NEGATIVE ng/mL (<50); Hydroxymidazolam Ur, GC/MS NEGATIVE ng/mL (<50); Hydroxytriazolam NEGATIVE ng/mL (<50); Lorazepam, Ur GC/MS NEGATIVE ng/mL (<50); Nordiazepam, Confirm NEGATIVE ng/mL (<50); Oxazepam Ur, GC/MS NEGATIVE ng/mL (<50); Temazepam, Confirm NEGATIVE ng/mL (<50)
[2022-05-19] MEDS ORDERED: MELATONIN 3 MG TAB PO SCH (21:00)
--- NOTE | 2022-05-20 11:55 | Psychiatric Progress Note ---
Date of Service May 20, 2022 Impression / Recommendations Impression This is a 21 yo [employer] student admitted medically following an intentional overdose suicide attempt. Diagnostically consistent with MDD. Acute risk of self-harm remains elevated and high given suicide attempt requiring medical admission, major depressive symptoms, history of prior attempts, hopelessness, ongoing depression. Given elevated risk of harm to self they meet criteria for inpatient psychiatric care for diagnostic clarification, safety/stabilization, development of additional coping skills, medication management and disposition/safety planning. She is agreeable to voluntary treatment but will meet criteria for 302 status based on severity of suicide attempt and ongoing modifiable risk factors if she changes her mind. 05/20/22: remains depressed s/p severe suicide attempt. Ongoing bed search. R eviewed medication options and awaiting records from psychiatrist and she gave me permission to speak with Dr. Bosch via email. She is interested in potentially starting Wellbutrin and discussed options for mood stabilizers including restarting Vraylar versus [place] versus alternative antipsychotic mood stabilizer given that history is consistent with BPAD type II. Episodes of risk taking/impulsivity go beyond what we be expected for normative transitional age experimentation/impulsivity especially as she regrets them after the week of increased impulsivity improves and she feels somewhat out of control during these periods of time. Currently in major depressive episode. (1) Bipolar 2 disorder: (2) Intentional benzodiazepine overdose: (3) Antidepressant overdose: (4) Suicide attempt: (5) Major depression, recurrent: Plan 05/20/22: Ongoing bed search -Continue 1-on-1 -Reached out to her outpt psychiatrist to speak via phone and records requested -Continue with trazodone and melatonin prn, hold all other psych meds, she wants to think about mood stabilizer options/Wellbutrin -no signs of any benzo withdrawal nor rash from lamictal overdose 05/19/22 -Continue 1-on-1 for risk of harm to self -Do not discharge or allow to leave AMA -Voluntary for inpt psych tx, psych liason has started bed search -Hold psych medications for now pending inpt psych admission -Will start trazodone 50mg qhs prn for insomnia and melatonin 9mg qhs -Once placement is found she should be allowed to have her Vraylar returned to her and taken to inpatient psychiatry facility in case they decide to continue this as it is typically non-formulary and unavailable in some inpt settings. For now pharmacy is holding. -Offered therapeutic activities which ED nurses will provide Risk Factors Assessment Do You Have Access To A Gun?: No Interval History Identifying Information 21 yo [employer] student admitted medically s/p suicide attempt via overdose. Psychiatry consulted for risk assessment and recommendations. Chief Complaint "I sleep so much when I'm depressed, that's how my roommates learned something was wrong". Review of Systems Notes Sleep and appetite are stable Subjective Subjective Patient was seen & assessed and interval progress reviewed. Ongoing bed search, remains medically stable. Continues to have depression. Reviewed past history of mood symptoms and recent symptoms as well as past medication trials. History of periods of elevated mood with impulsivity including spending a lot of money, getting a tattoo, making drastic changes to her hair like suddenly cutting or coloring it that last about 5-7 days typically but never with significant changes in sleep, still sleeps about 7-8 hours per night. Never history of full manic episode. When depressed she sleeps for 15-20hours per night and has very low energy and motivation. Estimates ~4 episodes of hypomania in the last year and multiple depressive episodes that tend to last 3-4 weeks. Also with lifelong anxiety that worsens during depressive episodes and then tends to have frequent panic attacks. Thought notably while in ED has has been calm and not appeared to have significant anxiety. Slept better last night with trazodone, no side effects. Denies SI but still ambivalence about being alive. Has been on abilify since 7th grade with limited benefit, still has mood cycling. Prior to hospitalization was on: Cymbalta 60mg qd (for ~6-8 months with no perceived benefit), Lamictal 200mg for mood stabilization (also with limited benefit), Xanax 0.25mg BID prn for panic attacks but has worsened anxiety as xanax wears off and used at times to help with falling asleep, started on Vraylar a few weeks ago and dose was increased to 3mg qd in last week by her outpt psychiatrist due to ongoing depression. In past tried sertraline, which worked well she recalls, and lexapro but this caused fatigue but was also only on it for ~2 weeks. Has never tried Wellbutrin. No hx seizures or eating disorder. Physical Exam Psychiatric Orientation: alert and oriented x 3 Apperance: appropriately dressed and appropriately groomed Eye Contact: good eye contact Motor Behavior: no abnormal motor movements Speech: normal rate/rhythm/volume of speech Affect: + depressed affect Mood: + depressed mood and + anxious mood Thought Process: goal directed thought process Thought Content: reality based without delusions Suicidal Thoughts: denies suicidal thoughts (but attempt leading to admission), denies suicidal plan and denies suicidal intent Homicidal Thoughts: denies homicidal thoughts Hallucinations: no auditory hallucinations and no visual hallucinations Cognition: recent memory grossly intact, remote memory grossly intact, attention grossly intact and language grossly intact Estimated Intelligence: consistent with education level Insight: + fair insight Judgement: + limited judgement Vital Signs (Past 24 Hours) Last Vital Signs Pulse 95 H 05/20/22 07:52 Resp 18 05/20/22 07:52 BP 115/85 05/20/22 07:52 Pulse Ox 97 05/20/22 07:52 O2 Del Method 05/20/22 07:52 Results & Data ([facility]) Laboratory Results Laboratory Results - last 24 hr 05/17/22 15:55 U OH-Alprazolam Confrm 284 H 7-Amino Clonazepam NEGATIVE Ur Nordiazepam Confirm NEGATIVE U OH-ethylflurazepam NEGATIVE U Lorazepam Cnf GC/MS NEGATIVE U Oxazepam Confm GC/MS NEGATIVE Ur Temazepam Confirm NEGATIVE U OH-Triazolam Confirm NEGATIVE U OH-Midazolam Confirm NEGATIVE Drug Screen Comment SEE NOTE Current Inpatient Medications Current Inpatient Medications: Current Inpatient Medications Acetaminophen (Acetaminophen 325 Mg Tab) 650 mg PO Q4H PRN PRN Reason: Pain or Fever Stop: 06/16/22 06:07 Last Admin: 05/19/22 18:06 Dose: 650 mg Melatonin (Melatonin 3 Mg Tab) 9 mg PO HS KIMI Stop: 06/18/22 20:59 Last Admin: 05/19/22 21:19 Dose: 9 mg Ondansetron HCl (Ondansetron Inj 2 Mg/Ml 2 Ml Vial) 4 mg IV Q6H PRN PRN Reason: Nausea Stop: 06/16/22 06:07 Trazodone HCl (Trazodone Hcl 50 Mg Tab) 50 mg PO HS PRN PRN Reason: Insomnia Stop: 06/18/22 20:59 Last Admin: 05/19/22 21:19 Dose: 50 mg (1) Intentional benzodiazepine overdose Encounter type: initial encounter Qualified Code(s): T42.4X2A - Poisoning by benzodiazepines, intentional self-harm, initial encounter
--- NOTE | 2022-05-20 13:38 | Discharge Summary ---
Date of Service May 20, 2022 Admission HPI Per Admitting Provider The patient is referred for admission due to intentional overdose of 25 xanax pills and and unknown quantity of duloxetine. She is unarousable, and and thus cannot contribute to her HPI or ROS. Principal Diagnosis 1. Intentional OD on Benzos and Antidepressant meds in suicide attempt 2. Tobacco use 3. MDD 4. Bipolar 2 D/o Discharge Exam GENERAL: 21 yo Well-developed, well-nourished WF. NAD. LUNGS: Clear to auscultation bilaterally. No W/R/R. CARDIOVASCULAR: Regular rate and rhythm. ABDOMEN: Soft, non-tender and non-distended. BS normoactive x 4 quad. EXTREMITIES: No edema. Non-tender. Peripheral pulses +2/4. NEUROLOGIC: A&O x3. PSYCHIATRIC: Cooperative. Appropriate mood and affect. SKIN: Warm, dry, intact. No rashes or lesions. Discharge Data Allergies Allergy/AdvReac Type Severity Reaction Status Date / Time No Known Allergies Allergy Verified 10/16/21 17:12 Consultations 05/17/22 04:41 ED Decision to Admit Stat 05/17/22 05:39 Consult Psychiatry Routine Hospital Course (1) Benzodiazepine (tranquilizer) overdose: - Pt OD'd on benzos and cymbalta on evening of 05/16 - reportedly took around 25 xanax pills & unknown # of cymbalta pills - admitted to tele with consult to psych - OD was intentional to commit suicide- UDS + for benzos - Home psych meds were held as per recommendations by project consultant - Given Trazodone and Melatonin on 918 d/t insomnia - Transition to in-house inpatient behavioral health unit under psychiatric care (2) Antidepressant overdose: - also reportedly took and unknown number of duloxetine pills (3) Tobacco use disorder: Previously seen in the ED on 10/16/21 for chest pain, and noted to be a regular tobacco user, e-cigarettes and vaping. Plan Pt noted to have an elevated TSH of 13 with a normal FT4 and T3. Would hold off on initiating thyroid replacement, obtain f/u TFTs in 6-8 weeks. Medically stable for discharge from medical and will be transferred to our inpatient behavioral health unit under care of Dr. Zuleta. Plan d/w Dr. Euceda who has also seen and evaluated this patient and agrees with aforementioned. Total Time Total Time Spent Total Time Spent (In Minutes): <30 minutes Discharge Plan Discharge Items Patient Disposition: Transfer Behavioral Health Fac Reason For Visit: BENZODIAZEPINE OD Discharge Diagnosis: intentional overdose Activity: Resume your previous activity Non-emergency contact: Primary Care Provider and Psychiatrist Call non-emergency contact if: you have any medication questions Follow-up/Referrals: [facility] [Primary Care Provider] - Diet: Regular Addtl Attending Provider Instructions: You were hospitalized after an intentional overdose of anti-anxiety and anti- depressant medication. You will be transferred to our inpatient behavioral health unit for voluntary treatment of your depression and anxiety symptoms. Pending Studies at Discharge: No Stand-Alone Forms: My [facility] Medications and DC Order Prescriptions: Continued medroxyprogesterone 150 mg/mL syringe 150 mg IM .[id number] Rx Instructions: DUE OCTOBER 2021. No Action lithium carbonate 300 mg Tablet 300 mg PO DAILY Qty: 90 0RF Rx Instructions: and 2 pills in evening bupropion HCl 150 mg Tablet Extended Release 24 Hr 150 mg PO QAM 30 Days Qty: 30 0RF trazodone 50 mg Tablet 50 mg PO HS PRN (Reason: Anxiety) 30 Days Qty: 30 0RF melatonin 3 mg Tablet 9 mg PO HS Qty: 1 0RF hydroxyzine HCl 25 mg Tablet 25 mg PO Q4H PRN (Reason: Anxiety) Qty: 15 0RF Discharge Orders: Discharge Order (Routine); Ordered 05/20/22 Ordered By: Annamarie Ashraf Admission Data Admit Date/Time: 05/20/22 16:02 Attending Provider: Peg Hicks Admit Provider: Kyle Galicia Primary Care Provider: [facility] Other Providers: Shagufta Zuleta Supervising Physician Co-Signing Physician Notes I personally saw and examined the patient. I verified all quinn points and agree with Annamarie Ashraf PA-C with the following exceptions and/or additions: 21 year old female admission for benzodiazepine overdose. Over 24 hours from overdose and patient not sedated in anyway. Medically stable for discharge to psychiatric pulido. O/E HS1+2, no murmurs, Chest CTAB, Abdo ST, A&Ox3 Coding Level of Care Code 30879 OBS Care - Discharge Diagnoses Benzodiazepine (tranquilizer) overdose T42.4X1A Antidepressant overdose T43.201A Tobacco use disorder F17.200
== END 2022-05-20 16:33 | DRG 918 ==
LOC: EDINP 01:04 → ED 01:04 → SUATTDRO 05:39 → 3S 06:09 → EDINP 05-20 16:02 → UNDODISOB 05-20 16:06

== ENCOUNTER 2022-05-20 16:17 | Inpatient (IN) ==
[~2022-05-20 16:17] MED LIST: ACETAMINOPHEN 325 MG TAB PO PRN; ALUMINUM/MAGNESIUM SUSP 30 ML UDC PO PRN; BISMUTH SUBSALICYLATE LIQD 236 ML PO PRN; MAGNESIUM HYDROXIDE SUSP 30 ML UDC PO PRN; SODIUM CHLORIDE 0.65% NA SOLN 45 ML (OCEAN) PRN; hydrOXYzine HCl 25 MG TAB PO PRN
[2022-05-20] MEDS: hydrOXYzine HCl 25 MG TAB PO PRN (16:23)
[2022-05-20] MEDS: MELATONIN 3 MG TAB PO SCH (21:09)
[2022-05-20] MEDS: traZODone HCL 50 MG TAB PO PRN (21:10)
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
[2022-05-21] MEDS: buPROPion XL 150 MG TABCR PO SCH (08:50)
[2022-05-21] MEDS: LITHIUM CARBONATE 300 MG TAB PO SCH (21:03)
[2022-05-21] MEDS: MELATONIN 3 MG TAB PO SCH (21:03)
[2022-05-21] MEDS: traZODone HCL 50 MG TAB PO PRN (21:05)
[2022-05-22] MEDS: buPROPion XL 150 MG TABCR PO SCH (08:20)
[2022-05-22] MEDS: hydrOXYzine HCl 25 MG TAB PO PRN (10:45)
--- NOTE | 2022-05-22 16:17 | Psychiatric Progress Note ---
Date of Service May 22, 2022 Impression / Recommendations Impression The patient is a 21 year old [employer] student with a history of BPAD type II, FEI with panic attacks who was admitted for suicide attempt via overdose requiring medical admission. Diagnostically consistent with BPAD type II current major depressive episode and FEI with panic attacks per history. The patient is deemed unstable and requires psychiatric hospitalization for diagnostic clarification, safety and stabilization, medication management and development of further coping skills. 05/22/22: Ongoing depression and anxiety. Tolerating Wellbutrin, trazodone and initiation of Li. Reviewed options for Li dosing, she prefers to stay at a low dose.Reviewed ways she is discussing options related to pros/cons of returning to school vs home with her parents and processed some of their understandable concerns/questions that she has been discussing with them. (1) Bipolar disorder with severe depression: (2) Bipolar 2 disorder: (3) Suicide attempt: (4) Generalized anxiety disorder with panic attacks: Plan 05/22/22: Continue with current medications and tx plan. 05/21/22: The patient was admitted to the [facility] ([facility] health unit) on q15 min checks (behavioral with suicide precautions) for safety. The patient will participate in group, recreational, and milieu therapies and will be offered additional individual and family sessions as clinically appropriate. -Start Wellbutrin XL 150mg qd -Start [place] 300mg qhs -Continue trazodone 50mg qhs prn and melatonin 9mg qhs for insomnia Inventory Assets Strengths: supportive relationships, willing to get treatment, student, good friends Needs: safety and stabilization, medication adjustment, additional coping skills, increased outpatient services Suicide Risk Level Suicide Risk Level Comments: High-Moderate due to severe depression with suicide attempt prior to admission but feels safe in the hospital, able to safety contract and agrees to let nursing/staff know should they develop plan, intent or feel unable to remain safe. 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 Chief Complaint "I've been really anxious". Review of Systems Sleep Information Total Hours of Sleep: 6 Meal Information Percent Meal Consumed - Breakfast: 100 Percent Meal Consumed - Lunch: 50 Percent Meal Consumed - Dinner: 50 Subjective Subjective Patient was seen & assessed and interval progress reviewed with treatment team nursing and social work. Attending groups. Was up early due to anxiety about family meeting. After meeting was tearful and accepted prn Vistaril and then rested in her room but out later engaging with peers. She feels the Wellbutrin is "great and really helping" as she notices it helps with her energy and seems to give her mood a bit of a 'boost" and she didn't need to nap yesterday like she typically does throughout the day. Denies worsening anxiety related to this, she feels it is due to discussion with her parents about if she'll withdraw for the semester versus returning to classes. No side effects from the Cyril. Slept well. Denies SI. Physical Exam Psychiatric Orientation: alert and oriented x 3 Apperance: appropriately dressed and appropriately groomed Eye Contact: good eye contact Motor Behavior: no abnormal motor movements Speech: normal rate/rhythm/volume of speech Affect: + depressed affect, + anxious affect and + tearful affect Mood: + depressed mood and + anxious mood Thought Process: goal directed thought process Thought Content: reality based without delusions Suicidal Thoughts: denies suicidal thoughts (but overdose attempt requiring medical admission prior to psych admission), denies suicidal plan and denies suicidal intent Homicidal Thoughts: denies homicidal thoughts Hallucinations: no auditory hallucinations and no visual hallucinations Cognition: recent memory grossly intact, remote memory grossly intact, attention grossly intact and language grossly intact Estimated Intelligence: consistent with education level Insight: + fair insight Judgement: + fair judgement Vital Signs (Past 24 Hours) Last Vital Signs Temp 36.9 C 05/22/22 06:34 Pulse 93 H 05/22/22 06:34 Resp 18 05/22/22 06:34 BP 108/64 05/22/22 06:34 Pulse Ox 96 09/19/22 16:36 O2 Del Method 05/20/22 16:36 Results & Data ([facility]) Current Inpatient Medications Current Inpatient Medications: Current Inpatient Medications Acetaminophen (Acetaminophen 325 Mg Tab) 650 mg PO Q4H PRN PRN Reason: Headache or Minor Fever Stop: 06/19/22 13:12 Al Hydrox/Mg Hydrox/Simethicone (Aluminum/Magnesium Susp 30 Ml Udc) 30 ml PO Q4H PRN PRN Reason: GI Upset Stop: 06/19/22 13:12 Bismuth Subsalicylate (Bismuth Subsalicylate Liqd 236 Ml) 15 ml PO PRN PRN PRN Reason: Loose Stool Stop: 06/19/22 13:12 Bupropion HCl (Bupropion Xl 150 Mg Tabcr) 150 mg PO QAM KIMI Stop: 06/20/22 08:59 Last Admin: 05/22/22 08:20 Dose: 150 mg Hydroxyzine HCl (Hydroxyzine Hcl 25 Mg Tab) 50 mg PO HSZ PRN PRN Reason: Insomnia Stop: 06/19/22 13:12 Hydroxyzine HCl (Hydroxyzine Hcl 25 Mg Tab) 25 mg PO Q4H PRN PRN Reason: Anxiety Stop: 06/19/22 13:12 Last Admin: 05/22/22 10:45 Dose: 25 mg Cyril Carbonate (Cyril Carbonate 300 Mg Tab) 300 mg PO HS KIMI Stop: 06/20/22 21:59 Last Admin: 05/21/22 21:03 Dose: 300 mg Magnesium Hydroxide (Magnesium Hydroxide Susp 30 Ml Udc) 30 ml PO DAILY PRN PRN Reason: Constipation Stop: 06/19/22 13:12 Melatonin (Melatonin 3 Mg Tab) 9 mg PO HS KIMI Stop: 06/19/22 21:59 Last Admin: 05/21/22 21:03 Dose: 9 mg Sodium Chloride (Sodium Chloride 0.65% Na Soln 45 Ml ([place])) 1 - 2 sprays NA PRN PRN PRN Reason: Nasal Dryness/Congestion Stop: 06/19/22 13:12 Trazodone HCl (Trazodone Hcl 50 Mg Tab) 50 mg PO HS PRN PRN Reason: Insomnia Stop: 06/19/22 21:59 Last Admin: 05/21/22 21:05 Dose: 50 mg
[2022-05-22] MEDS: MELATONIN 3 MG TAB PO SCH (21:29)
[2022-05-22] MEDS: LITHIUM CARBONATE 300 MG TAB PO SCH (21:29)
[2022-05-22] MEDS: traZODone HCL 50 MG TAB PO PRN (21:29)
[2022-05-23] MEDS: buPROPion XL 150 MG TABCR PO SCH (09:02)
--- NOTE | 2022-05-23 14:37 | Psychiatric Progress Note ---
Date of Service May 23, 2022 Impression / Recommendations Impression The patient is a 21 year old [employer] student with a history of BPAD type II, FEI with panic attacks who was admitted for suicide attempt via overdose requiring medical admission. Diagnostically consistent with BPAD type II current major depressive episode and FEI with panic attacks per history. The patient is deemed unstable and requires psychiatric hospitalization for diagnostic clarification, safety and stabilization, medication management and development of further coping skills. 05/23/22: Ongoing depression and anxiety with new stressor of learning her step- grandmother was murdered a few days ago. Tolerating Wellbutrin, trazodone and initiation of Li. Consents to further titration of Li, she prefers to do split dosing initially to reduce likelihood of GI side effects. (1) Bipolar disorder with severe depression: (2) Bipolar 2 disorder: (3) Suicide attempt: (4) Generalized anxiety disorder with panic attacks: Plan 05/23/22: Continue Li titration to 300mg BID. Continue Wellbutrin and trazodone prn. 05/22/22: Continue with current medications and tx plan. 05/21/22: The patient was admitted to the [facility] ([facility] mental health unit) on q15 min checks (behavioral with suicide precautions) for safety. The patient will participate in group, recreational, and milieu therapies and will be offered additional individual and family sessions as clinically appropriate. -Start Wellbutrin XL 150mg qd -Start [place] 300mg qhs -Continue trazodone 50mg qhs prn and melatonin 9mg qhs for insomnia Inventory Assets Strengths: supportive relationships, willing to get treatment, student, good friends Needs: safety and stabilization, medication adjustment, additional coping skills, increased outpatient services Suicide Risk Level Suicide Risk Level Comments: High-Moderate due to depression, anxiety with suicide attempt prior to admission but feels safe in the hospital, able to safety contract and agrees to let nursing/staff know should they develop plan, intent or feel unable to remain safe. 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 Chief Complaint "I think I'm in shock about it". Review of Systems Sleep Information Total Hours of Sleep: 6 Meal Information Percent Meal Consumed - Breakfast: 100 Percent Meal Consumed - Lunch: 75 Percent Meal Consumed - Dinner: 100 Subjective Subjective Patient was seen & assessed and interval progress reviewed with treatment team nursing and social work. Spoke with her roommates last night and felt this went well. Remains hopeful that her parents will support her returning to [employer] but still discussing options with them/what makes the most sense in terms of returni ng home vs returning to school after hospitalization. Got upsetting news that her step-grandmother was murdered two days ago which she feels in "shock" about especially as police think another extended family member may have been involved in her . She continues to find the Wellbutrin helpful for mood and likes the lithium with no side effects. Still having some anxiety. Physical Exam Psychiatric Orientation: alert and oriented x 3 Apperance: appropriately dressed and appropriately groomed Eye Contact: good eye contact Motor Behavior: no abnormal motor movements Speech: normal rate/rhythm/volume of speech Affect: + depressed affect and + anxious affect Mood: + depressed mood and + anxious mood Thought Process: goal directed thought process Thought Content: reality based without delusions Suicidal Thoughts: denies suicidal thoughts (but overdose attempt requiring medical admission prior to psych admission), denies suicidal plan and denies suicidal intent Homicidal Thoughts: denies homicidal thoughts Hallucinations: no auditory hallucinations and no visual hallucinations Cognition: recent memory grossly intact, remote memory grossly intact, attention grossly intact and language grossly intact Estimated Intelligence: consistent with education level Insight: + fair insight Judgement: + fair judgement Vital Signs (Past 24 Hours) Last Vital Signs Temp 37.1 C 05/23/22 06:42 Pulse 103 H 05/23/22 06:43 Resp 18 05/23/22 06:42 BP 115/64 05/23/22 06:43 Pulse Ox 96 05/20/22 16:36 O2 Del Method 05/20/22 16:36 Results & Data ([facility]) Current Inpatient Medications Current Inpatient Medications: Current Inpatient Medications Acetaminophen (Acetaminophen 325 Mg Tab) 650 mg PO Q4H PRN PRN Reason: Headache or Minor Fever Stop: 06/19/22 13:12 Al Hydrox/Mg Hydrox/Simethicone (Aluminum/Magnesium Susp 30 Ml Udc) 30 ml PO Q4H PRN PRN Reason: GI Upset Stop: 06/19/22 13:12 Bismuth Subsalicylate (Bismuth Subsalicylate Liqd 236 Ml) 15 ml PO PRN PRN PRN Reason: Loose Stool Stop: 06/19/22 13:12 Bupropion HCl (Bupropion Xl 150 Mg Tabcr) 150 mg PO QAM KIMI Stop: 06/20/22 08:59 Last Admin: 05/23/22 09:02 Dose: 150 mg Hydroxyzine HCl (Hydroxyzine Hcl 25 Mg Tab) 50 mg PO HSZ PRN PRN Reason: Insomnia Stop: 06/19/22 13:12 Hydroxyzine HCl (Hydroxyzine Hcl 25 Mg Tab) 25 mg PO Q4H PRN PRN Reason: Anxiety Stop: 06/19/22 13:12 Last Admin: 05/22/22 10:45 Dose: 25 mg [place] Carbonate ([place] Carbonate 300 Mg Tab) 300 mg PO HS KIIM Stop: 06/20/22 21:59 Last Admin: 05/22/22 21:29 Dose: 300 mg Magnesium Hydroxide (Magnesium Hydroxide Susp 30 Ml Udc) 30 ml PO DAILY PRN PRN Reason: Constipation Stop: 06/19/22 13:12 Melatonin (Melatonin 3 Mg Tab) 9 mg PO HS KIMI Stop: 06/19/22 21:59 Last Admin: 05/22/22 21:29 Dose: 9 mg Sodium Chloride (Sodium Chloride 0.65% Na Soln 45 Ml ([place])) 1 - 2 sprays NA PRN PRN PRN Reason: Nasal Dryness/Congestion Stop: 06/19/22 13:12 Trazodone HCl (Trazodone Hcl 50 Mg Tab) 50 mg PO HS PRN PRN Reason: Insomnia Stop: 06/19/22 21:59 Last Admin: 05/22/22 21:29 Dose: 50 mg Mental Health & Subst Abuse Tx Psychiatrist Name of Psychiatrist: [facility] Psychiatrist's Post Discharge Appointments Partial or Psych Rehab Name of Partial or Psych Rehab: Bisi SNATOYO Phone Number of Partial or Psych Rehab:
[2022-05-23] MEDS: MELATONIN 3 MG TAB PO SCH (21:01)
[2022-05-23] MEDS: LITHIUM CARBONATE 300 MG TAB PO SCH (21:01)
[2022-05-24] MEDS: LITHIUM CARBONATE 300 MG TAB PO SCH ×2 (08:08→21:04)
[2022-05-24] MEDS: buPROPion XL 150 MG TABCR PO SCH (08:08)
--- NOTE | 2022-05-24 14:10 | Psychiatric Progress Note ---
Date of Service May 24, 2022 Impression / Recommendations Impression The patient is a 21 year old [employer] student with a history of BPAD type II, FEI with panic attacks who was admitted for suicide attempt via overdose requiring medical admission. Diagnostically consistent with BPAD type II current major depressive episode and FEI with panic attacks per history. The patient is deemed unstable and requires psychiatric hospitalization for diagnostic clarification, safety and stabilization, medication management and development of further coping skills. 05/24/22: Mood continues to improve, still with some anxiety but showing ongoing improvement. Tolerating increase of Spray, given that she is hoping to return home with her parents will get Li level tomorrow AM but this is expected to be low given dose increase today. She understands this and agrees to reach out to her outpatient psychiatrist if she cannot attend her upcoming outpatient appointment to ensure she gets a new level on 05/29 or 05/30. Tolerating Wellbutrin, trazodone. Reviewed coping skills she is using for anxiety and processing events of her step-grandmothers murder. (1) Bipolar disorder with severe depression: (2) Bipolar 2 disorder: (3) Suicide attempt: (4) Generalized anxiety disorder with panic attacks: Plan 05/24/22: Li level tomorrow morning. Continue with current medications and tx plan. Had family meeting. Did IOP intake. 05/23/22: Continue Li titration to 300mg BID. Continue Wellbutrin and trazodone prn. 05/22/22: Continue with current medications and tx plan. 05/21/22: The patient was admitted to the [facility] ([facility]) on q15 min checks (behavioral with suicide precautions) for safety. The patient will participate in group, recreational, and milieu therapies and will be offered additional individual and family sessions as clinically appropriate. -Start Wellbutrin XL 150mg qd -Start Spray 300mg qhs -Continue trazodone 50mg qhs prn and melatonin 9mg qhs for insomnia Inventory Assets Strengths: supportive relationships, willing to get treatment, student, good friends Needs: safety and stabilization, medication adjustment, additional coping skills, increased outpatient services Suicide Risk Level Suicide Risk Level: Moderate (q15 min suicide checks) Suicide Risk Level Comments: Moderate due to depression, anxiety with suicide attempt prior to admission but mood is improving, no SI and feels safe in the hospital, able to safety contract and agrees to let nursing/staff know should they develop plan, intent or feel unable to remain safe. 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 Chief Complaint "I'm ok". Review of Systems Sleep Information Total Hours of Sleep: 6 Meal Information Percent Meal Consumed - Breakfast: 80 Percent Meal Consumed - Lunch: 100 Percent Meal Consumed - Dinner: 100 Subjective Subjective Patient was seen & assessed and interval progress reviewed with treatment team nursing and social work. Had family meeting and intake with [facility]. Feels depression is improving and likes the Wellbutrin and Spray. Still some anxiety but she wonders if some of this is due to excitement about potentially going home soon. Didn't take trazodone last night and didn't sleep as well so she's going to request it again tonight. Finds Vistaril helpful. No side effects from higher dose of Spray today. Reviewed plan to get labwork tomorrow and need to check again in 5-7 days for accurate level of increased dose of 600mg daily and she agrees to do this. Understands she can contact Dr. Bosch's office to request this and that she should have bloodwork done prior to taking morning dose of Spray that day. Physical Exam Psychiatric Orientation: alert and oriented x 3 Apperance: appropriately dressed and appropriately groomed Eye Contact: good eye contact Motor Behavior: no abnormal motor movements Speech: normal rate/rhythm/volume of speech Affect: euthymic affect Mood: + anxious mood Thought Process: goal directed thought process Thought Content: reality based without delusions Suicidal Thoughts: denies suicidal thoughts Homicidal Thoughts: denies homicidal thoughts Hallucinations: no auditory hallucinations and no visual hallucinations Cognition: recent memory grossly intact, remote memory grossly intact, attention grossly intact and language grossly intact Estimated Intelligence: consistent with education level Insight: + fair insight Judgement: + fair judgement Vital Signs (Past 24 Hours) Last Vital Signs Temp 36.9 C 05/24/22 06:35 Pulse 69 05/24/22 06:36 Resp 16 05/24/22 06:35 BP 109/74 05/24/22 06:36 Pulse Ox 96 05/20/22 16:36 O2 Del Method 05/20/22 16:36 Results & Data ([facility]) Current Inpatient Medications Current Inpatient Medications: Current Inpatient Medications Acetaminophen (Acetaminophen 325 Mg Tab) 650 mg PO Q4H PRN PRN Reason: Headache or Minor Fever Stop: 06/19/22 13:12 Al Hydrox/Mg Hydrox/Simethicone (Aluminum/Magnesium Susp 30 Ml Udc) 30 ml PO Q4H PRN PRN Reason: GI Upset Stop: 06/19/22 13:12 Bismuth Subsalicylate (Bismuth Subsalicylate Liqd 236 Ml) 15 ml PO PRN PRN PRN Reason: Loose Stool Stop: 06/19/22 13:12 Bupropion HCl (Bupropion Xl 150 Mg Tabcr) 150 mg PO QAM KIMI Stop: 06/20/22 08:59 Last Admin: 05/24/22 08:08 Dose: 150 mg Hydroxyzine HCl (Hydroxyzine Hcl 25 Mg Tab) 50 mg PO HSZ PRN PRN Reason: Insomnia Stop: 06/19/22 13:12 Hydroxyzine HCl (Hydroxyzine Hcl 25 Mg Tab) 25 mg PO Q4H PRN PRN Reason: Anxiety Stop: 06/19/22 13:12 Last Admin: 05/22/22 10:45 Dose: 25 mg Spray Carbonate (Spray Carbonate 300 Mg Tab) 300 mg PO BID KIMI Stop: 06/22/22 20:59 Last Admin: 05/24/22 08:08 Dose: 300 mg Magnesium Hydroxide (Magnesium Hydroxide Susp 30 Ml Udc) 30 ml PO DAILY PRN PRN Reason: Constipation Stop: 06/19/22 13:12 Melatonin (Melatonin 3 Mg Tab) 9 mg PO HS KIMI Stop: 06/19/22 21:59 Last Admin: 05/23/22 21:01 Dose: 9 mg Sodium Chloride (Sodium Chloride 0.65% Na Soln 45 Ml ([employer])) 1 - 2 sprays NA PRN PRN PRN Reason: Nasal Dryness/Congestion Stop: 06/19/22 13:12 Trazodone HCl (Trazodone Hcl 50 Mg Tab) 50 mg PO HS PRN PRN Reason: Insomnia Stop: 06/19/22 21:59 Last Admin: 05/22/22 21:29 Dose: 50 mg Mental Health & Subst Abuse Tx Psychiatrist Name of Psychiatrist: Laurie Erazo - Dr. Bosch Psychiatrist's Date of Appointment with Psychiatrist: 05/29/22 Time of Appointment with Psychiatrist: 12:40 PM Psychiatric Appointment Comment: [address] [place] [id number] Therapist Name of Therapist: Sofya Ferguson - Nguyen Perdomo Therapist's Date of Therapist Appointment: 05/30/22 Time of Therapist Appointment: 10:30 AM Therapy Appointment Comment: [phone] [facility] [id number] Post Discharge Appointments Partial or Psych Rehab [facility] Phone Number of Partial or Psych Rehab: Partial or Psych Rehab Appointment Comment: Virtual program Contact Information Discharge Discharge Address: [address] [place] [id number]
[2022-05-24] MEDS: traZODone HCL 50 MG TAB PO PRN (21:03)
[2022-05-24] MEDS: MELATONIN 3 MG TAB PO SCH (21:03)
[2022-05-25] MEDS: LITHIUM CARBONATE 300 MG TAB PO SCH (09:07)
[2022-05-25] MEDS: buPROPion XL 150 MG TABCR PO SCH (09:07)
[2022-05-25] MEDS: hydrOXYzine HCl 25 MG TAB PO PRN (11:43)
[2022-05-25] MEDS ORDERED: DESTROY THIS MEDICATION ONE (12:30)
--- NOTE | 2022-05-25 12:30 | Discharge Summary ---
Date of Service May 25, 2022 History of Present Illness As per Dr. Zuleta on admission: She presents for psychiatric admission for worsening depression and suicide attempt via overdose from polypharmacy including ~20 tabs of Xanax, "handful" of lamictal and Cymbalta. She cannot identify any specific precipitants nor acute stressors noting she has good friends, supportive family and enjoys college. Only recent change was transition back to campus for fall a few weeks ago and generally her classes can be stressful. Does note she is a "people pleaser" and this can be stressful. SI has been occurring for the last week. Earlier in the week she told her parents and friends she wasn't feeling well and then on Friday she had decided she was going to go home for a week to be with family. But then on "I was just feeling really off". She went to her class and then returned home, went grocery shopping with friends and got some unhelpful advice which was on her mind and felt like "no one was there for me" and then that evening she had dinner, went to work but was more isolated and then got home and on drive home decided she was going to attempt suicide. Her roommates were all out and she got home and cut her upper thigh and then took a bunch of her medications. Then she texted her friend saying "I love you" and then she didn't respond back to her friend as she fell asleep and thought she would in her sleep. Her friend then checked on her and called 911 after finding empty pill bottles. She endorses depressive symptoms including tearfulness, anhedonia, decreased motivation, self-guilt, helplessness, hopelessness, decreased energy, decreased appetite, and increased sleep often sleeping throughout the day she estimates she sleeps about 15-20 hours per day when she is depressed. She also endorses symptoms of anxiety including generalized worries, shakiness, easily overwhelmed and panic attacks which worsens when she becomes depressed. Has been able to keep up with classwork but has been getting easily overwhelmed in her classes. Further recent history per my consult notes on 05/20/20 and 05/19/20: "Continues to have depression. Reviewed past history of mood symptoms and recent symptoms as well as past medication trials. History of periods of elevated mood with impulsivity including spending a lot of money, getting a tattoo, making drastic changes to her hair like suddenly cutting or coloring it that last about 5-7 days typically but never with significant changes in sleep, still sleeps about 7-8 hours per night. Never history of full manic episode. When depressed she sleeps for 15-20hours per night and has very low energy and motivation. Estimates ~4 episodes of hypomania in the last year and multiple depressive episodes that tend to last 3-4 weeks. Also with lifelong anxiety that worsens during depressive episodes and then tends to have frequent panic attacks. Thought notably while in ED has has been calm and not appeared to have significant anxiety. Slept better last night with trazodone, no side effects. Denies SI but still ambivalence about being alive. Has been on abilify since 7th grade with limited benefit, still has mood cycling. Prior to hospitalization was on: Cymbalta 60mg qd (for ~6-8 months with no perceived benefit), Lamictal 200mg for mood stabilization (also with limited benefit), Xanax 0.25mg BID prn for panic attacks but has worsened anxiety as xanax wears off and used at times to help with falling asleep, started on Vraylar a few weeks ago and dose was increased to 3mg qd in last week by her outpt psychiatrist due to ongoing depression. In past tried sertraline, which worked well she recalls, and lexapro but this caused fatigue but was also only on it for ~2 weeks. Has never tried Wellbutrin. No hx seizures or eating disorder." and "She was admitted following suicide attempt via overdose of ~25 xanax, Cymbalta and lamictal. She notes a history of depression with worsening over the last one month with no clear precipitants or specific stressors. She is ambivalent about surviving the attempt noting that she never expected to survive but also feels loved after getting lots of messages from her friends. She notes recent changes in her medications with her psychiatrist from [place] recently making multiple changes including recent addition of Vraylar. She had been thinking about SI for the few days prior to the attempt." She has been meeting with her outpatient psychiatrist via telemedicine in the last few weeks due to her worsening mood and he added Vraylar for bipolar depression and she has been taking lamictal 200mg, Cymbalta 60mg qd, and Abilify 10mg qd as well as Xanax prn for panic attacks and insomnia. Psychiatric ROS notable for no current nor history of symptoms of psychosis, PTSD, OCD nor eating disorder. History of self-harming via cutting, last 6 years ago up until day of attempt. Physical Exam Psychiatric See admission H&P and DOD assessment. Vital Signs (Past 24 Hours) Last Vital Signs Temp 37.1 C 05/25/22 10:47 Pulse 72 05/25/22 10:47 Resp 16 05/25/22 10:47 BP 115/64 05/25/22 10:47 Pulse Ox 96 05/25/22 10:47 O2 Del Method 05/20/22 16:36 Principal Diagnosis bipolar II disorder Psychiatric Data See daily stay summary. In short, safety was maintained and the patient was cooperative with care. Medication changes included trial of Wellbutrin in place of duloxetine and a trial of lithium in place of Vraylar, etc. and they tolerated this well. Her lithium level on 300 mg BID was 0.3 and reviewed recommended target of 0.6-0.8 given recent episode following re-review of risks/benefits/alternatives. This discussion included but was not limited to risk of toxicity in OD, teratogenecity (agrees to continue depot shot), and alterations of levels with NSAIDs. She agreed to use Tylenol preferentially. A family session was held and safety plan was completed prior to discharge that included her withdrawing from school, returning home, and parents will secure /oversee medications. Day of Discharge Assessment Today the patient voices readiness for discharge. They note improvement in mood and deny thoughts to harm self or others. Thoughts remain organized and they are improved from admission. There is no evidence of psychosis. They agree to take mediations as prescribed and keep follow-up appointments. They are stable for discharge to outpatient level of care. Transition of Care Transition Of Care Record: was reviewed with the patient Advance Directives Advance Directives Information Provided: Yes Advance Directives: No Mental Health Advance Directive: No Advance Directives on File: No Living Will: No Power of Battery Plate Remover: No Advance Directives Reason:: Declines as Mental Health Visit. Suicide Risk Level Suicide Risk Level Comments: Suicide risk at discharge is deemed low as the patient is no longer requiring 24-hr monitoring, has a safety plan, and is free of suicidal ideation at discharge. 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) Stable Relationships: Yes Supportive Family: Yes Good Rapport with Provider: Yes Tobacco Cessation at Discharge Tobacco Cessation Medication Prescribed at Discharge: Not Applicable/Non-Smoker Total Time Total Time Spent: Greater Than 30 Minutes Total Time Includes: Examination of the patient, Discharge Planning and Medication Reconciliation Discharge Data Lab Results 05/25/22 08:02 [place] 0.3 L Hospital Course (1) Bipolar disorder with severe depression: (2) Bipolar 2 disorder: (3) Suicide attempt: (4) Generalized anxiety disorder with panic attacks: Plan 05/24/22: Li level tomorrow morning. Continue with current medications and tx plan. Had family meeting. Did IOP intake. 05/23/22: Continue Li titration to 300mg BID. Continue Wellbutrin and trazodone prn. 05/22/22: Continue with current medications and tx plan. 05/21/22: The patient was admitted to the [facility]) on q15 min checks (behavioral with suicide precautions) for safety. The patient wi ll participate in group, recreational, and milieu therapies and will be offered additional individual and family sessions as clinically appropriate. -Start Wellbutrin XL 150mg qd -Start [place] 300mg qhs -Continue trazodone 50mg qhs prn and melatonin 9mg qhs for insomnia Mental Health & Subst Abuse Tx Psychiatrist Name of Psychiatrist: Laurie Erazo - Dr. Bosch Psychiatrist's Date of Appointment with Psychiatrist: 05/29/22 Time of Appointment with Psychiatrist: 12:40 PM Psychiatric Appointment Comment[facility] [address] Name of Therapist: Sofya Ferguson - Nguyen Perdomo Therapist's Date of Therapist Appointment: 05/30/22 Time of Therapist Appointment: 10:30 AM Therapy Appointment Comment: [address] [facility] [address] Post Discharge Appointments Primary Care Physician Name Of Family Doctor: Follow up with your regular PCP as needed. Partial or Psych Rehab Name of Partial or Psych Rehab: [facility] Phone Number of Partial or Psych Rehab: Date of Appointment at Partial or Psych Rehab: 05/27/22 Time of Appointment at Partial or Psych Rehab: 1:00 PM Partial or Psych Rehab Appointment Comment: Virtual program Smoking Cessation Counseling Tobacco Cessation Medication Prescribed at Discharge: Not Applicable/Non-Smoker Other #1: Name of Aftercare Appointment: [facility] (Psychiatry) Phone Number of Aftercare Appointment: [phone] Time of Aftercare Appointment: Call to establish psychiatric care once secondary insurance is dropped. Aftercare Appointment Comment: [address] [facility] [id number] #2: Name of Aftercare Appointment: [facility] - Lakeshia Blum Phone Number of Aftercare Appointment: [phone] Date of Aftercare Appointment: 05/27/22 Time of Aftercare Appointment: 11:00 AM Aftercare Appointment Comment: Link will be emailed to your [employer] email. Contact Information Discharge Discharge Address: [address] [place] [id number] Discharge Plan Discharge Items Patient Disposition: Home - Self-Care Reason For Visit: MDD Discharge Diagnosis: bipolar II disorder Activity: Resume your previous activity Non-emergency contact: Primary Care Provider, Psychiatrist and Therapist Call non-emergency contact if: you have any medication questions and your symptoms worsen Follow-up/Referrals: [place] [Primary Care Provider] - Diet: Regular Addtl Attending Provider Instructions: SPECIAL CARE INSTRUCTIONS: 1. Follow through with your scheduled aftercare appointments. If unable to keep an appointment, please call to reschedule. 2. Take your medication only as prescribed. Medication should not be changed or stopped without the approval of your doctor. In the event of worsening symptoms or concerns about side effects, contact your doctor immediately. 3. Utilize new healthy coping skills, anger management skills, and stress management skills learned during your hospitalization. Journal feelings and process them with a support person. Identify stressors or situations that may result in relapse, deterioration or inappropriate behaviors and develop a plan to deal with those issues. 4. If your coping skills are ineffective and you are in crisis, contact your outpatient providers for direction. If unable to reach your providers, please call the [facility] CRISIS LINE AT , go to the [facility] walk-in center at [address], [address], [place], or go to the closest Emergency Room. 5. Avoid alcohol and un-prescribed drugs. 6. You have been provided with the Mental Health Advance Directives Pamphlet for your review. 7. Your condition is stable for discharge to outpatient level of care, but recovery is an ongoing process. Ifthoughts to harm yourself or others return, follow the safety plan developed during your stay. Planning for a safe return home includes securing weapons. Our treatment team recommends weaponsbe removed from the home until your outpatient provider reassesses your progress. In rare cases where the items themselvescannot be removed, guns and ammunitionshould be secured separatelyand keys stored by a reliable personoutside of the home. If you were admitted on an involuntary commitment, the police or other legal authorities may be involved in this process. AFTERCARE APPOINTMENTS: * Please call your insurance company prior to your scheduled appointment to confirm your aftercare providers are covered. Take your insurance information to your appointments. WHO TO CALL AND WHEN: Medical Emergencies: For questions or emergencies related to your hospital stay, please contact the Inpatient Behavioral Health Unit at [phone]. A tube bending machine operator is on-call 24/03 for the Behavioral Health Unit for emergencies At any time you feel your situation is an emergency, you may also call 911 immediately. Pending Studies at Discharge: No Stand-Alone Forms: [facility], Smoking Cessation Medications and DC Order Prescriptions: New lithium carbonate 300 mg Tablet 300 mg PO DAILY Qty: 90 0RF Rx Instructions: and 2 pills in evening bupropion HCl 150 mg Tablet Extended Release 24 Hr 150 mg PO QAM 30 Days Qty: 30 0RF trazodone 50 mg Tablet 50 mg PO HS PRN (Reason: Anxiety) 30 Days Qty: 30 0RF melatonin 3 mg Tablet 9 mg PO HS Qty: 1 0RF hydroxyzine HCl 25 mg Tablet 25 mg PO Q4H PRN (Reason: Anxiety) Qty: 15 0RF Continued medroxyprogesterone 150 mg/mL syringe 150 mg IM .[id number] Rx Instructions: DUE OCTOBER 2021. Discontinued lamotrigine 100 mg tablet 200 mg PO DAILY aripiprazole 10 mg tablet 10 mg PO DAILY alprazolam 0.25 mg tablet 0.25 mg PO TID PRN (Reason: Anxiety) Vraylar 1.5 mg capsule 1.5 mg PO DAILY duloxetine 60 mg 60 mg PO DAILY Discharge Orders: Discharge Order (Routine); Ordered 05/25/22 Ordered By: Peg Hicks Admission Data Admit Date/Time: 05/20/22 16:34 Attending Provider: Peg Hicks Admit Provider: Shagufta Zuleta Primary Care Provider: [facility] Other Interventions: Discharge Summary Assessment (RN) Last Done: 05/25/22 10:47 PSY Interdisciplinary Discharge Planning Last Done: 05/25/22 10:47 Coding Level of Care Code 18740 D/C day mgmt > 30 min Diagnoses Bipolar disorder with severe depression F31.4 Bipolar 2 disorder F31.81 Suicide attempt T14.91XA Generalized anxiety disorder with panic attacks F41.1; F41.0
== END 2022-05-25 12:55 | disposition home or self-care (01) | DRG 885 ==
LOC: 3S 16:17 → SUATTDRO 16:34